=== PATIENT | female | born 1995 | race African-American/Black ===

== ENCOUNTER → 2020-11-03 | Day surgery (SDC) | payer OTHER ==
[~2020-11-03] MED LIST: KEPPRA XR750 MG PO
[2020-11-03 08:00] LABS: HCG (URINE) SCREEN NEGATIVE (NEGATIVE)
[2020-11-03 08:47] LABS: BASOPHIL 0.2 % (0-2); EOSINOPHIL 0.9 % (0-5); HCT 35.6 % (37.0-47.0); HGB 11.2 g/dl (12.5-16.0); LYMPHOCYTE 34.1 % (15-48); MCH 27.2 pg (25.0-31.0); MCHC 31.5 g/dL (32.0-36.0); MCV 86.4 fL (78.0-100.0); MONOCYTE 8.4 % (0-12); MPV 11.9 fL (6.0-9.5); NEUTROPHIL 56.2 % (41-80); NRBC 0; PLT 200 K/uL (150-400); RBC 4.12 M/uL (4.20-5.40); WBC 4.6 K/uL (4.0-10.5)
== END | disposition home or self-care (01) ==
LOC: FAS 07:27
PROVIDERS: Oral & Maxillofacial Surgery
DX: K01.1 Impacted teeth (principal); K02.9 Dental caries, unspecified; G40.909 Epilepsy, unspecified, not intractable, without status epilepticus; D64.9 Anemia, unspecified; F17.210 Nicotine dependence, cigarettes, uncomplicated; Z79.899 Other long term (current) drug therapy; Z88.8 Allergy status to other drugs, medicaments and biological substances
CPT/HCPCS: 36415; 84703; 85025; J1100; J1170; J2250; J2405; J2550; J2704; J3010; J7120